=== PATIENT | female | born 2000 | race Asian ===

== ENCOUNTER 2022-08-07 18:24 | Emergency (ER) | payer OTHER, SELFPAY ==
[2022-08-07] VITALS (9 sets, daily range): BP systolic 94–108; BP diastolic 57–85; PULSE 77–84; RESP 16–18; TEMP 36.6; O2SAT 95–100; BMI 19.5
--- NOTE | 2022-08-07 18:45 | CRLHL7_ITS ---
For Patients: As a result of the Century Cures Act, medical imaging exams and procedure reports are released immediately into your electronic medical record. You may view this report before your referring provider. If you have questions, please contact your health care provider. INDICATION: Loss of consciousness. Fall from horse. TECHNIQUE: CT head without contrast. COMPARISON: None. FINDINGS: CSF spaces: Within normal limits for age. Brain parenchyma and extra-axial spaces: The florence-white differentiation is normal. No sign of mass, hemorrhage, or midline shift. No extra-axial fluid collection. Skull base and calvarium: The visualized paranasal sinuses and mastoid air cells demonstrate no acute or significant findings. The visualized orbits are grossly unremarkable. No skull fractures. IMPRESSION: No acute intracranial abnormality. Please note that all CT scans at this facility use dose modulation, iterative reconstruction, and/or weight-based dosing when appropriate to reduce radiation dose to as low as reasonably achievable. Dictated by Kulwant Hassan MD @ 08/07/2022 7:01:26 PM (Electronically Signed)
--- NOTE | 2022-08-07 18:45 | ED.FALL ---
HPI - Fall General Chief Complaint: Fall/Minor Trauma Stated Complaint: Fell off of horse 2h ago, doesn't remembe incident Time Seen by Provider: 08/07/22 18:28 History of Present Illness HPI Narrative: This 21-year-old female comes in for evaluation of the injury that occurred just prior to arrival. She fell from a horse and did have brief loss of consciousness. She states that she does not remember what happened. She is complaining of headache but does not report any other injury. She does not report any neck pain. She is talking normally and was able to get up and ambulate. Related Data Home Medications Medication Instructions Recorded Confirmed levonorgestrel 0.15 mg-ethinyl 1 tab PO DAILY 08/07/22 08/07/22 estradiol 0.03 mg tablet (Levora-28) Allergies Allergy/AdvReac Type Severity Reaction Status Date / Time No Known Drug Allergies Allergy Verified 08/07/22 18:37 Review of Systems Status of ROS: Reports: 10 or more systems reviewed and unremarkable except as noted in History and below Narrative: Constitutional: No fevers, no weight gain or loss. Eyes: No discharge. No vision changes. HENT: No congestion, no sore throat, no ear pain. Cardiovascular: No chest pain, no palpitations. Respiratory: No shortness of breath, no wheezes, no cough. Gastrointestinal: No abdominal pain, no vomiting, no diarrhea. Genitourinary: No dysuria, no hematuria. Musculoskeletal: Normal range of motion. Skin: No rashes, no pruritis. Neurological: No dizziness, weakness, sensory change, speech change. Endo/Heme/Allergies: No bruising or bleeding. No polydipsia. Pysch: no suicidality, no anxiety, no insomnia. All other systems reviewed and are negative. [facility] Social History Smoking Status: Never smoker Do you use any of these nicotine containing products: None How often do you have a drink containing alcohol: never AUDIT-C Alcohol total score: 0 Non-prescribed substance use: denies use Exam Narrative: Exam Narrative: Constitutional: Well-developed, well-nourished, no acute distress. HEENT: Normocephalic, atraumatic. Neck: Normal range of motion. Nontender. Supple. No midline tenderness when palpating along the spine. Heart: Regular. No murmurs. Normal rate. Intact distal pulses. Lungs: Clear to auscultation. No chest discomfort. No wheezes, rhonchi, or rales. Abdomen: Normal bowel sounds. Nontender. No rebound tenderness. Genitalia: Deferred. Back: No midline tenderness. Normal range of motion. Extremities: Normal range of motion. No injury. Skin: Intact. No rash. Warm. No erythema or pallor. Neurologic: No altered sensation. No weakness. Alert and oriented. Psychiatric: No suicidality. No anxiety or depression. No insomnia. Nursing notes and vitals signs are reviewed. Const: Vital Signs, click to edit/add: Vital Signs - 24 hr 08/07/22 18:30 08/07/22 18:56 08/07/22 19:02 Temperature 98 F Pulse Rate 79 82 Pulse Rate [Pulse Oximeter] 81 Respiratory Rate 16 18 16 Blood Pressure 100/72 103/74 Blood Pressure [Le ft Upper Arm] 108/77 Pulse Oximetry 98 98 99 Oxygen Delivery Me thod Room Air 08/07/22 19:12 08/07/22 19:20 08/07/22 19:22 Temperature Pulse Rate 84 78 Pulse Rate [Pulse Oximeter] Respiratory Rate 16 16 Blood Pressure 94/66 102/73 Blood Pressure [Le ft Upper Arm] Pulse Oximetry 99 99 97 Oxygen Delivery Me thod 08/07/22 19:32 08/07/22 19:42 Temperature Pulse Rate 77 78 Pulse Rate [Pulse Oximeter] Respiratory Rate 16 16 Blood Pressure 106/85 102/57 L Blood Pressure [Le ft Upper Arm] Pulse Oximetry 100 95 Oxygen Delivery Me thod Course Vital Signs Vital signs: Initial Vital Signs Temperature 98 F 08/07/22 18:30 Temperature Source Temporal Artery Scan 08/07/22 18:30 Pulse Rate 81 08/07/22 18:30 Pulse Rhythm 08/07/22 18:30 Pulse Strength 3+ Normal 08/07/22 18:30 Respiratory Rate 16 08/07/22 18:30 Blood Pressure 108/77 08/07/22 18:30 Blood Pressure Mean 87 08/07/22 18:30 Blood Pressure Position Semi-Fowlers 08/07/22 18:30 Pulse Oximetry 98 08/07/22 18:30 Oxygen Delivery Method 08/07/22 18:30 Vital Signs Temperature 98 F 08/07/22 18:30 Pulse Rate 81 08/07/22 18:30 Respiratory Rate 16 08/07/22 18:30 Blood Pressure 108/77 08/07/22 18:30 Pulse Oximetry 98 08/07/22 18:30 Oxygen Delivery Method 08/07/22 18:30 Temperature 98 F 08/07/22 18:30 Pulse Rate 78 08/07/22 19:42 Respiratory Rate 16 08/07/22 19:42 Blood Pressure 102/57 L 08/07/22 19:42 Pulse Oximetry 95 08/07/22 19:42 Oxygen Delivery Method 08/07/22 18:30 MDM - Fall MDM Narrative Medical decision making narrative: Primary Survey: Vital Signs are within normal limits. Airway: Open. Breathing: Easy. Circulation: no obvious bleeding; normal capillary refill. Disability: GCS is 15. Normal pupillary response and motor movements. Secondary Survey: Head: Normocephalic Neck: No midline tenderness. ROM intact. Chest: Non tender. No external signs of trauma. Abdomen: Non tender. No rebound tenderness. Normal bowel sounds. Pelvis/Genitals: No tenderness to A/P and lateral stress. No blood at the urethral meatus. Extremities: Atraumatic. Back: No midline tenderness. No sign of injury. Primary and Secondary surveys are completed. The patient's GCS is 15. CT imaging of the head is acquired and returns with no acute findings. This patient does not report any other pain other than headache. She did have loss of consciousness and is experiencing symptoms of a concussion. No I did advise her regarding when to resume normal activities the process of recovering from a concussion. At the time of discharge the patient appears safe for outpatient management. The treatment plan is reviewed along with written and verbal return precautions. Reasons to return and the importance of close followup were also reviewed. Discharge Plan Discharge Clinical Impression: Concussion with loss of consciousness Patient Disposition: Home, Self-Care Condition: Stable Additional Instructions: Return to normal activities step by step as symptoms resolved. Follow up with MD or return if worsening. Prescriptions: No Action levonorgestrel-ethinyl estrad [Levora-28] 0.15-0.03 mg tablet 1 tab PO DAILY Follow Up/Referrals: Provider,Not a Local [Primary Care Provider] - Stand Alone Forms: [facility] Info Instructions
== END 2022-08-07 20:35 | disposition home or self-care (01) ==
PROVIDERS: Emergency Provider Emergency Medicine Emergency Medical Services
DX: S06.0X1A Concussion with loss of consciousness of 30 minutes or less, initial encounter (principal); V80.010A Animal-rider injured by fall from or being thrown from horse in noncollision accident, initial encounter
CPT/HCPCS: 70450; 94761; 99283; 99284; 99291